=== PATIENT | female | born 1975 | race Caucasian/White ===

== ENCOUNTER → 2016-06-12 | Outpatient (CLI) | payer BC ==
[~2016-06-12] MED LIST: ALBU17AE3; ALBU17AE3 IH; FLUT1DIS28; PRD20T PO
== END ==
LOC: LAB 19:11
PROVIDERS: ATTEND Obstetrics & Gynecology
DX: O20.0 Threatened abortion (principal)
CPT/HCPCS: 36415; 84702

== ENCOUNTER 2017-01-15 13:12 | Day surgery (SDC) | payer BC ==
[~2017-01-15] VITALS: Ht 170.2 cm; Wt 78.5 kg
--- OUTSIDE RECORDS SUMMARY | 2017-01-15 13:15 | XMS REPORT | Continuity of Care Document ---
Author Author [facility] Address Unknown Phone Unavailable Allergies Active Description Code Type Severity Reaction Onset Reported/Identified Relationship to Patient Clinical Status Yes No Known Drug Allergies [id number] Drug Allergy Unknown N/ A 05/14/2007 Medications Problems Date Dx Coded Attending Type Code Diagnosis Diagnosed By 10/16/2007 REJI MILNER DO 300.00 AN ANXIETY UNSPEC 10/16/2007 REJI MILNER DO 307.47 SI DYSSOMNIA NOS 10/16/2007 REJI MILNER DO 311 MO DEPRESSIVE DISORDER NOS 10/16/2007 300.00 AN ANXIETY UNSPEC 10/16/2007 307.47 SI DYSSOMNIA NOS 10/16/2007 311 MO DEPRESSIVE DISORDER NOS 10/16/2007 300.00 AN ANXIETY UNSPEC 10/16/2007 307.47 SI DYSSOMNIA NOS 10/16/2007 311 MO DEPRESSIVE DISORDER NOS 10/16/2007 REJI MILNER DO 300.00 AN ANXIETY UNSPEC 10/16/2007 REJI MILNER DO 307.47 SI DYSSOMNIA NOS 10/16/2007 REJI MILNER DO 311 MO DEPRESSIVE DISORDER NOS 10/16/2007 300.00 AN ANXIETY UNSPEC 10/16/2007 307.47 SI DYSSOMNIA NOS 10/16/2007 311 MO DEPRESSIVE DISORDER NOS 10/16/2007 300.00 AN ANXIETY UNSPEC 10/16/2007 307.47 SI DYSSOMNIA NOS 10/16/2007 311 MO DEPRESSIVE DISORDER NOS 10/16/2007 300.00 AN ANXIETY UNSPEC 10/16/2007 307.47 SI DYSSOMNIA NOS 10/16/2007 311 MO DEPRESSIVE DISORDER NOS 10/16/2007 300.00 AN ANXIETY UNSPEC 10/16/2007 307.47 SI DYSSOMNIA NOS 10/16/2007 311 MO DEPRESSIVE DISORDER NOS 10/16/2007 REJI MILNER DO 300.00 AN ANXIETY UNSPEC 10/16/2007 REJI MILNER DO 307.47 SI DYSSOMNIA NOS 10/16/2007 ALF WARD REJI Banuelos 311 MO DEPRESSIVE DISORDER NOS 10/16/2007 VANESSA GANDARA PHD 300.00 AN ANXIETY UNSPEC 10/16/2007 VANESSA GANDARA PHD 307.47 SI DYSSOMNIA NOS 10/16/2007 VANESSA GANDARA PHD 311 MO DEPRESSIVE DISORDER NOS 10/16/2007 NELSON JOHNSON 300.00 AN ANXIETY UNSPEC 10/16/2007 NELSON JOHNSON 307.47 SI DYSSOMNIA NOS 10/16/2007 NELSON JOHNSON 311 MO DEPRESSIVE DISORDER NOS 10/16/2007 VANESSA GANDARA PHD 300.00 AN ANXIETY UNSPEC 10/16/2007 VANESSA GANDARA PHD 307.47 SI DYSSOMNIA NOS 10/16/2007 VANESSA GANDARA PHD 311 MO DEPRESSIVE DISORDER NOS 10/16/2007 VANESSA GANDARA PHD 300.00 AN ANXIETY UNSPEC 10/16/2007 VANESSA GANDARA PHD 307.47 SI DYSSOMNIA NOS 10/16/2007 VANESSA GANDARA PHD 311 MO DEPRESSIVE DISORDER NOS 10/16/2007 VANESSA GANDARA PHD 300.00 AN ANXIETY UNSPEC 10/16/2007 VANESSA GANDARA PHD 307.47 SI DYSSOMNIA NOS 10/16/2007 VANESSA GANDARA PHD 311 MO DEPRESSIVE DISORDER NOS 10/16/2007 NELSON JOHNSON 300.00 AN ANXIETY UNSPEC 10/16/2007 NELSON JOHNSON 307.47 SI DYSSOMNIA NOS 10/16/2007 NELSON JOHNSON 311 MO DEPRESSIVE DISORDER NOS 10/16/2007 VANESSA GANDARA PHD 300.00 AN ANXIETY UNSPEC 10/16/2007 VANESSA GANDARA PHD 307.47 SI DYSSOMNIA NOS 10/16/2007 VANESSA GANDARA PHD 311 MO DEPRESSIVE DISORDER NOS 10/16/2007 VANESSA GANDARA PHD 300.00 AN ANXIETY UNSPEC 10/16/2007 VANESSA GANDARA PHD 307.47 SI DYSSOMNIA NOS 10/16/2007 VANESSA GANDARA PHD 311 MO DEPRESSIVE DISORDER NOS 10/16/2007 NELSON JOHNSON 300.00 AN ANXIETY UNSPEC 10/16/2007 NELSON JOHNSON 307.47 SI DYSSOMNIA NOS 10/16/2007 NELSON JOHNSON 311 MO DEPRESSIVE DISORDER NOS 10/16/2007 VANESSA GANDARA PHD 300.00 AN ANXIETY UNSPEC 10/16/2007 VANESSA GANDARA PHD 307.47 SI DYSSOMNIA NOS 10/16/2007 NICHOL SHEPHERD, VANESSA Peraza 311 MO DEPRESSIVE DISORDER NOS 10/16/2007 NICHOL SHEPHERD, VANESSA Peraza 300.00 AN ANXIETY UNSPEC 10/16/2007 VANESSA GANDARA PHD 307.47 SI DYSSOMNIA NOS 10/16/2007 NICHOL SHEPHERD, VANESSA Peraza 311 MO DEPRESSIVE DISORDER NOS 10/16/2007 NICHOL SHEPHERD, VANESSA Peraza 300.00 AN ANXIETY UNSPEC 10/16/2007 NICHOL SHEPHERD, VANESSA Peraza 307.47 SI DYSSOMNIA NOS 10/16/2007 NICHOL SHEPHERD, VANESSA Peraza 311 MO DEPRESSIVE DISORDER NOS 01/02/2008 REJI MILNER DO V61.10 RL RELATION COUNS 01/02/2008 V61.10 RL RELATION COUNS 01/02/2008 V61.10 RL RELATION COUNS 01/02/2008 REJI MILNER DO V61.10 RL RELATION COUNS 01/02/2008 V61.10 RL RELATION COUNS 01/02/2008 V61.10 RL RELATION COUNS 01/02/2008 V61.10 RL RELATION COUNS 01/02/2008 V61.10 RL RELATION COUNS 01/02/2008 REJI MILNER DO V61.10 RL RELATION COUNS 01/02/2008 VANESSA GANDARA PHD V61.10 RL RELATION COUNS 01/02/2008 NELSON JOHNSON V61.10 RL RELATION COUNS 01/02/2008 VANESSA GANDARA PHD V61.10 RL RELATION COUNS 01/02/2008 VANESSA GANDARA PHD V61.10 RL RELATION COUNS 01/02/2008 VANESSA GANDARA PHD V61.10 RL RELATION COUNS 01/02/2008 NELSON JOHNSON V61.10 RL RELATION COUNS 01/02/2008 VANESSA GANDARA PHD V61.10 RL RELATION COUNS 01/02/2008 VANESSA GANDARA PHD V61.10 RL RELATION COUNS 01/02/2008 NELSON JOHNSON V61.10 RL RELATION COUNS 01/02/2008 VANESSA GANDARA PHD V61.10 RL RELATION COUNS 01/02/2008 VANESSA GANDARA PHD V61.10 RL RELATION COUNS 01/02/2008 VANESSA GANDARA PHD V61.10 RL RELATION COUNS 04/13/2008 REJI MILNER DO 296.30 MAJOR DEPRESSIVE AFFECTIVE DISORDER RECURRENT EPISODE UNSPECIFIED DEGREE 04/13/2008 296.30 MAJOR DEPRESSIVE AFFECTIVE DISORDER RECURRENT EPISODE UNSPECIFIED DEGREE 04/13/2008 296.30 MAJOR DEPRESSIVE AFFECTIVE DISORDER RECURRENT EPISODE UNSPECIFIED DEGREE 04/13/2008 REJI MILNER DO 296.30 MAJOR DEPRESSIVE AFFECTIVE DISORDER RECURRENT EPISODE UNSPECIFIED DEGREE 04/13/2008 296.30 MAJOR DEPRESSIVE AFFECTIVE DISORDER RECURRENT EPISODE UNSPECIFIED DEGREE 04/13/2008 296.30 MAJOR DEPRESSIVE AFFECTIVE DISORDER RECURRENT EPISODE UNSPECIFIED DEGREE 04/13/2008 296.30 MAJOR DEPRESSIVE AFFECTIVE DISORDER RECURRENT EPISODE UNSPECIFIED DEGREE 04/13/2008 296.30 MAJOR DEPRESSIVE AFFECTIVE DISORDER RECURRENT EPISODE UNSPECIFIED DEGREE 04/13/2008 REJI MILNER DO 296.30 MAJOR DEPRESSIVE AFFECTIVE DISORDER RECURRENT EPISODE UNSPECIFIED DEGREE 04/13/2008 VANESSA GANDARA PHD 296.30 MAJOR DEPRESSIVE AFFECTIVE DISORDER RECURRENT EPISODE UNSPECIFIED DEGREE 04/13/2008 NELSON JOHNSON M 296.30 MAJOR DEPRESSIVE AFFECTIVE DISORDER RECURRENT EPISODE UNSPECIFIED DEGREE 04/13/2008 VANESSA GANDARA PHD 296.30 MAJOR DEPRESSIVE AFFECTIVE DISORDER RECURRENT EPISODE UNSPECIFIED DEGREE 04/13/2008 VANESSA GANDARA PHD 296.30 MAJOR DEPRESSIVE AFFECTIVE DISORDER RECURRENT EPISODE UNSPECIFIED DEGREE 04/13/2008 VANESSA GANDARA PHD 296.30 MAJOR DEPRESSIVE AFFECTIVE DISORDER RECURRENT EPISODE UNSPECIFIED DEGREE 04/13/2008 NELSON JOHNSON M 296.30 MAJOR DEPRESSIVE AFFECTIVE DISORDER RECURRENT EPISODE UNSPECIFIED DEGREE 04/13/2008 VANESSA GANDARA PHD 296.30 MAJOR DEPRESSIVE AFFECTIVE DISORDER RECURRENT EPISODE UNSPECIFIED DEGREE 04/13/2008 VANESSA GANDARA PHD 296.30 MAJOR DEPRESSIVE AFFECTIVE DISORDER RECURRENT EPISODE UNSPECIFIED DEGREE 04/13/2008 NELSON JOHNSON M 296.30 MAJOR DEPRESSIVE AFFECTIVE DISORDER RECURRENT EPISODE UNSPECIFIED DEGREE 04/13/2008 VANESSA GANDARA PHD 296.30 MAJOR DEPRESSIVE AFFECTIVE DISORDER RECURRENT EPISODE UNSPECIFIED DEGREE 04/13/2008 VANESSA GANDARA PHD 296.30 MAJOR DEPRESSIVE AFFECTIVE DISORDER RECURRENT EPISODE UNSPECIFIED DEGREE 04/13/2008 VANESSA GANDARA PHD 296.30 MAJOR DEPRESSIVE AFFECTIVE DISORDER RECURRENT EPISODE UNSPECIFIED DEGREE 06/11/2008 REJI MILNER DO 995.20 UNSPECIFIED ADVERSE EFFECT OF UNSPECIFIED DRUG MEDICINAL AND BIOLOGICAL SUBSTANCE 06/11/2008 REJI MILNER DO E939.9 UNSPECIFIED PSYCHOTROPIC AGENT CAUSING ADVERSE EFFECTS IN THERAPEUTIC USE 06/11/2008 995.20 UNSPECIFIED ADVERSE EFFECT OF UNSPECIFIED DRUG MEDICINAL AND BIOLOGICAL SUBSTANCE 06/11/2008 E939.9 UNSPECIFIED PSYCHOTROPIC AGENT CAUSING ADVERSE EFFECTS IN THERAPEUTIC USE 06/11/2008 995.20 UNSPECIFIED ADVERSE EFFECT OF UNSPECIFIED DRUG MEDICINAL AND BIOLOGICAL SUBSTANCE 06/11/2008 E939.9 UNSPECIFIED PSYCHOTROPIC AGENT CAUSING ADVERSE EFFECTS IN THERAPEUTIC USE 06/11/2008 REJI MILNER DO 995.20 UNSPECIFIED ADVERSE EFFECT OF UNSPECIFIED DRUG MEDICINAL AND BIOLOGICAL SUBSTANCE 06/11/2008 REJI MILNER DO E939.9 UNSPECIFIED PSYCHOTROPIC AGENT CAUSING ADVERSE EFFECTS IN THERAPEUTIC USE 06/11/2008 995.20 UNSPECIFIED ADVERSE EFFECT OF UNSPECIFIED DRUG MEDICINAL AND BIOLOGICAL SUBSTANCE 06/11/2008 E939.9 UNSPECIFIED PSYCHOTROPIC AGENT CAUSING ADVERSE EFFECTS IN THERAPEUTIC USE 06/11/2008 995.20 UNSPECIFIED ADVERSE EFFECT OF UNSPECIFIED DRUG MEDICINAL AND BIOLOGICAL SUBSTANCE 06/11/2008 E939.9 UNSPECIFIED PSYCHOTROPIC AGENT CAUSING ADVERSE EFFECTS IN THERAPEUTIC USE 06/11/2008 995.20 UNSPECIFIED ADVERSE EFFECT OF UNSPECIFIED DRUG MEDICINAL AND BIOLOGICAL SUBSTANCE 06/11/2008 E939.9 UNSPECIFIED PSYCHOTROPIC AGENT CAUSING ADVERSE EFFECTS IN THERAPEUTIC USE 06/11/2008 995.20 UNSPECIFIED ADVERSE EFFECT OF UNSPECIFIED DRUG MEDICINAL AND BIOLOGICAL SUBSTANCE 06/11/2008 E939.9 UNSPECIFIED PSYCHOTROPIC AGENT CAUSING ADVERSE EFFECTS IN THERAPEUTIC USE 06/11/2008 REJI MILNER DO 995.20 UNSPECIFIED ADVERSE EFFECT OF UNSPECIFIED DRUG MEDICINAL AND BIOLOGICAL SUBSTANCE 06/11/2008 REJI MILNER DO E939.9 UNSPECIFIED PSYCHOTROPIC AGENT CAUSING ADVERSE EFFECTS IN THERAPEUTIC USE 06/11/2008 VANESSA GANDARA PHD 995.20 UNSPECIFIED ADVERSE EFFECT OF UNSPECIFIED DRUG MEDICINAL AND BIOLOGICAL SUBSTANCE 06/11/2008 VANESSA GANDARA PHD E939.9 UNSPECIFIED PSYCHOTROPIC AGENT CAUSING ADVERSE EFFECTS IN THERAPEUTIC USE 06/11/2008 NELSON JOHNSON 995.20 UNSPECIFIED ADVERSE EFFECT OF UNSPECIFIED DRUG MEDICINAL AND BIOLOGICAL SUBSTANCE 06/11/2008 NELSON JOHNSON E939.9 UNSPECIFIED PSYCHOTROPIC AGENT CAUSING ADVERSE EFFECTS IN THERAPEUTIC USE 06/11/2008 VANESSA GANDARA PHD 995.20 UNSPECIFIED ADVERSE EFFECT OF UNSPECIFIED DRUG MEDICINAL AND BIOLOGICAL SUBSTANCE 06/11/2008 VANESSA GANDARA PHD E939.9 UNSPECIFIED PSYCHOTROPIC AGENT CAUSING ADVERSE EFFECTS IN THERAPEUTIC USE 06/11/2008 VANESSA GANDARA PHD 995.20 UNSPECIFIED ADVERSE EFFECT OF UNSPECIFIED DRUG MEDICINAL AND BIOLOGICAL SUBSTANCE 06/11/2008 VANESSA GANDARA PHD E939.9 UNSPECIFIED PSYCHOTROPIC AGENT CAUSING ADVERSE EFFECTS IN THERAPEUTIC USE 06/11/2008 VANESSA GANDARA PHD 995.20 UNSPECIFIED ADVERSE EFFECT OF UNSPECIFIED DRUG MEDICINAL AND BIOLOGICAL SUBSTANCE 06/11/2008 VANESSA GANDARA PHD E939.9 UNSPECIFIED PSYCHOTROPIC AGENT CAUSING ADVERSE EFFECTS IN THERAPEUTIC USE 06/11/2008 NELSON JOHNSON 995.20 UNSPECIFIED ADVERSE EFFECT OF UNSPECIFIED DRUG MEDICINAL AND BIOLOGICAL SUBSTANCE 06/11/2008 NELSON JOHNSON E939.9 UNSPECIFIED PSYCHOTROPIC AGENT CAUSING ADVERSE EFFECTS IN THERAPEUTIC USE 06/11/2008 VANESSA GANDARA PHD 995.20 UNSPECIFIED ADVERSE EFFECT OF UNSPECIFIED DRUG MEDICINAL AND BIOLOGICAL SUBSTANCE 06/11/2008 VANESSA GANDARA PHD E939.9 UNSPECIFIED PSYCHOTROPIC AGENT CAUSING ADVERSE EFFECTS IN THERAPEUTIC USE 06/11/2008 VANESSA GANDARA PHD 995.20 UNSPECIFIED ADVERSE EFFECT OF UNSPECIFIED DRUG MEDICINAL AND BIOLOGICAL SUBSTANCE 06/11/2008 VANESSA GANDARA PHD E939.9 UNSPECIFIED PSYCHOTROPIC AGENT CAUSING ADVERSE EFFECTS IN THERAPEUTIC USE 06/11/2008 NELSON JOHNSON M 995.20 UNSPECIFIED ADVERSE EFFECT OF UNSPECIFIED DRUG MEDICINAL AND BIOLOGICAL SUBSTANCE 06/11/2008 NELOSN JOHNSON M E939.9 UNSPECIFIED PSYCHOTROPIC AGENT CAUSING ADVERSE EFFECTS IN THERAPEUTIC USE 06/11/2008 VANESSA GANDARA PHD 995.20 UNSPECIFIED ADVERSE EFFECT OF UNSPECIFIED DRUG MEDICINAL AND BIOLOGICAL SUBSTANCE 06/11/2008 VANESSA GANDARA PHD E939.9 UNSPECIFIED PSYCHOTROPIC AGENT CAUSING ADVERSE EFFECTS IN THERAPEUTIC USE 06/11/2008 VANESSA GANDARA PHD 995.20 UNSPECIFIED ADVERSE EFFECT OF UNSPECIFIED DRUG MEDICINAL AND BIOLOGICAL SUBSTANCE 06/11/2008 VANESSA GANDARA PHD E939.9 UNSPECIFIED PSYCHOTROPIC AGENT CAUSING ADVERSE EFFECTS IN THERAPEUTIC USE 06/11/2008 VANESSA GANDARA PHD 995.20 UNSPECIFIED ADVERSE EFFECT OF UNSPECIFIED DRUG MEDICINAL AND BIOLOGICAL SUBSTANCE 06/11/2008 VANESSA GANDARA PHD E939.9 UNSPECIFIED PSYCHOTROPIC AGENT CAUSING ADVERSE EFFECTS IN THERAPEUTIC USE 11/11/2008 REJI MILNER DO 300.21 AN PANIC DIS W AGORA 11/11/2008 300.21 AN PANIC DIS W AGORA 11/11/2008 300.21 AN PANIC DIS W AGORA 11/11/2008 REJI MILNER DO 300.21 AN PANIC DIS W AGORA 11/11/2008 300.21 AN PANIC DIS W AGORA 11/11/2008 300.21 AN PANIC DIS W AGORA 11/11/2008 300.21 AN PANIC DIS W AGORA 11/11/2008 300.21 AN PANIC DIS W AGORA 11/11/2008 REJI MILNER DO 300.21 AN PANIC DIS W AGORA 11/11/2008 NICHOL SHEPHERD, VANESSA Peraza 300.21 AN PANIC DIS W AGORA 11/11/2008 NELSON JOHNSON 300.21 AN PANIC DIS W AGORA 11/11/2008 VANESSA GANDARA PHD 300.21 AN PANIC DIS W AGORA 11/11/2008 VANESSA GANDARA PHD 300.21 AN PANIC DIS W AGORA 11/11/2008 VANESSA GANDARA PHD 300.21 AN PANIC DIS W AGORA 11/11/2008 NELSON JOHNSON 300.21 AN PANIC DIS W AGORA 11/11/2008 VANESSA GANDARA PHD 300.21 AN PANIC DIS W AGORA 11/11/2008 VANESSA GANDARA PHD 300.21 AN PANIC DIS W AGORA 11/11/2008 NELSON JOHNSON 300.21 AN PANIC DIS W AGORA 11/11/2008 VANESSA GANDARA PHD 300.21 AN PANIC DIS W AGORA 11/11/2008 VANESSA GANDARA PHD 300.21 AN PANIC DIS W AGORA 11/11/2008 VANESSA GANDARA PHD 300.21 AN PANIC DIS W AGORA 08/03/2010 Ot 276.51 DEHYDRATION 08/03/2010 Ot 791.6 ACETONURIA 11/07/2010 REJI MILNER DO 296.80 MO BIPOLAR NOS 11/07/2010 REJI MILNER DO 309.81 AN PTSD 11/07/2010 296.80 MO BIPOLAR NOS 11/07/2010 309.81 AN PTSD 11/07/2010 296.80 MO BIPOLAR NOS 11/07/2010 309.81 AN PTSD 11/07/2010 WERDER DO, REJI F 296.80 MO BIPOLAR NOS 11/07/2010 ALF DO REIJ F 309.81 AN PTSD 11/07/2010 296.80 MO BIPOLAR NOS 11/07/2010 309.81 AN PTSD 11/07/2010 296.80 MO BIPOLAR NOS 11/07/2010 309.81 AN PTSD 11/07/2010 296.80 MO BIPOLAR NOS 11/07/2010 309.81 AN PTSD 11/07/2010 296.80 MO BIPOLAR NOS 11/07/2010 309.81 AN PTSD 11/07/2010 REJI MILNER DO F 296.80 MO BIPOLAR NOS 11/07/2010 ALF DOREJI F 309.81 AN PTSD 11/07/2010 VANESSA GANDARA PHD 296.80 MO BIPOLAR NOS 11/07/2010 VANESSA GANDARA PHD 309.81 AN PTSD 11/07/2010 NELSON JOHNSON M 296.80 MO BIPOLAR NOS 11/07/2010 NELSON JOHNSON M 309.81 AN PTSD 11/07/2010 VANESSA GANDARA PHD 296.80 MO BIPOLAR NOS 11/07/2010 VANESSA GANDARA PHD 309.81 AN PTSD 11/07/2010 VANESSA GANDARA PHD 296.80 MO BIPOLAR NOS 11/07/2010 VANESSA GANDARA PHD 309.81 AN PTSD 11/07/2010 VANESSA GANDARA PHD 296.80 MO BIPOLAR NOS 11/07/2010 VANESSA GANDARA PHD 309.81 AN PTSD 11/07/2010 NELSON JOHNSON M 296.80 MO BIPOLAR NOS 11/07/2010 NELSON JOHNSON M 309.81 AN PTSD 11/07/2010 VANESSA GANDARA PHD 296.80 MO BIPOLAR NOS 11/07/2010 VANESSA GANDARA PHD 309.81 AN PTSD 11/07/2010 VANESSA GANDARA PHD 296.80 MO BIPOLAR NOS 11/07/2010 VANESSA GANDARA PHD 309.81 AN PTSD 11/07/2010 NELSON JOHNSON M 296.80 MO BIPOLAR NOS 11/07/2010 NELSON JOHNSON M 309.81 AN PTSD 11/07/2010 VANESSA GANDARA PHD 296.80 MO BIPOLAR NOS 11/07/2010 VANESSA GANDARA PHD 309.81 AN PTSD 11/07/2010 VANESSA GANDARA PHD 296.80 MO BIPOLAR NOS 11/07/2010 VANESSA GANDARA PHD 309.81 AN PTSD 11/07/2010 VANESSA GANDARA PHD 296.80 MO BIPOLAR NOS 11/07/2010 VANESSA GANDARA PHD 309.81 AN PTSD 03/06/2012 296.32 MO DEPRESSIVE RECURRENT MODERATE 03/06/2012 REJI MILNER DO F 296.32 MO DEPRESSIVE RECURRENT MODERATE 03/06/2012 296.32 MO DEPRESSIVE RECURRENT MODERATE 03/06/2012 296.32 MO DEPRESSIVE RECURRENT MODERATE 03/06/2012 296.32 MO DEPRESSIVE RECURRENT MODERATE 03/06/2012 296.32 MO DEPRESSIVE RECURRENT MODERATE 03/06/2012 REJI MILNER DO F 296.32 MO DEPRESSIVE RECURRENT MODERATE 03/06/2012 VANESSA GANDARA PHD 296.32 MO DEPRESSIVE RECURRENT MODERATE 03/06/2012 NELSON JOHNSON 296.32 MO DEPRESSIVE RECURRENT MODERATE 03/06/2012 VANESSA GANDARA PHD 296.32 MO DEPRESSIVE RECURRENT MODERATE 03/06/2012 VANESSA GANDARA PHD 296.32 MO DEPRESSIVE RECURRENT MODERATE 03/06/2012 VANESSA GANDARA PHD 296.32 MO DEPRESSIVE RECURRENT MODERATE 03/06/2012 NELSON JOHNSON M 296.32 MO DEPRESSIVE RECURRENT MODERATE 03/06/2012 VANESSA GANDARA PHD 296.32 MO DEPRESSIVE RECURRENT MODERATE 03/06/2012 VANESSA GANDARA PHD 296.32 MO DEPRESSIVE RECURRENT MODERATE 03/06/2012 NELSON JOHNSON M 296.32 MO DEPRESSIVE RECURRENT MODERATE 03/06/2012 VANESSA GANDARA PHD 296.32 MO DEPRESSIVE RECURRENT MODERATE 03/06/2012 VANESSA GANDARA PHD 296.32 MO DEPRESSIVE RECURRENT MODERATE 03/06/2012 VANESSA GANDARA PHD 296.32 MO DEPRESSIVE RECURRENT MODERATE 12/25/2013 NELSON JOHNSON M 296.33 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 12/25/2013 VANESSA GANDARA PHD 296.33 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 12/25/2013 VANESSA GANDARA PHD 296.33 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 12/25/2013 VANESSA GANDARA PHD 296.33 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 12/25/2013 NELSON JOHNSON M 296.33 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 12/25/2013 VANESSA GANDARA PHD 296.33 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 12/25/2013 NICHOL SHEPHERD, VANESSA Peraza 296.33 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 12/25/2013 NELSON JOHNSON 296.33 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 12/25/2013 NICHOL SHEPHERD, VANESSA Peraza 296.33 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 12/25/2013 NICHOL SHEPHERD, VANESSA Peraza 296.33 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 12/25/2013 NICHOL SHEPHERD, VANESSA Peraza 296.33 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 06/23/2015 Ot 959.3 ELB/FOREARM/WRST INJ NOS 06/23/2015 Ot E000.8 OTHER EXTERNAL CAUSE STATUS 06/23/2015 Ot E030 UNSPECIFIED ACTIVITY 06/23/2015 Ot E849.0 ACCIDENT IN HOME 07/06/2015 MYESHA ULRICH MD Ot M47.896 OTHER SPONDYLOSIS, LUMBAR REGION 10/07/2015 Ot 959.3 ELB/FOREARM/WRST INJ NOS 10/07/2015 Ot E000.8 OTHER EXTERNAL CAUSE STATUS 10/07/2015 Ot E030 UNSPECIFIED ACTIVITY 10/07/2015 Ot E849.0 ACCIDENT IN HOME 10/07/2015 MYESHA ULRICH MD Ot M47.896 OTHER SPONDYLOSIS, LUMBAR REGION 10/11/2015 QUICKLEONARD [employer]ISH[employer] Ot N93.8 OTHER SPECIFIED ABNORMAL UTERINE AND VAG 10/11/2015 LEONARD WILSON [employer]ISHING [employer] Ot N94.6 DYSMENORRHEA, UNSPECIFIED 10/27/2015 LEONARD WILSON FINISHING [employer] Ot N93.8 OTHER SPECIFIED ABNORMAL UTERINE AND VAG 10/27/2015 QUICKLEONARD [employer]ISHING [employer] Ot N94.6 DYSMENORRHEA, UNSPECIFIED 06/12/2016 Ot 959.3 ELB/FOREARM/WRST INJ NOS 06/12/2016 Ot E000.8 OTHER EXTERNAL CAUSE STATUS 06/12/2016 Ot E030 UNSPECIFIED ACTIVITY 06/12/2016 Ot E849.0 ACCIDENT IN HOME 06/12/2016 MYESHA ULRICH MD Ot M47.896 OTHER SPONDYLOSIS, LUMBAR REGION 06/12/2016 LEONARD WILSON FINISHING [employer] Ot N93.8 OTHER SPECIFIED ABNORMAL UTERINE AND VAG 06/12/2016 QUICKLEONARD [employer] Ot N94.6 DYSMENORRHEA, UNSPECIFIED 07/04/2016 NED UGARTE DOA Shauna Ot O20.0 THREATENED Procedures Code [place] [address] PSYCH DIAGNOSTIC EVALUATION 03/07/2012 37631 PSYTX PT&/FAMILY 30 MINUTES 06/19/2012 35664 PSYTX PT&/FAMILY 45 MINUTES 07/11/2012 34004 PSYTX PT&/FAM W/E&M 30 MIN 08/15/2012 85759 PSYTX PT&/FAMILY 30 MINUTES 11/12/2012 24194 PSYCH DIAGNOSTIC EVALUATION 11/06/2013 88414 PSYTX PT&/FAMILY 45 MINUTES 12/28/2013 73615 PSYCH DIAGNOSTIC EVALUATION 12/28/2013 43970 PSYCH DIAGNOSTIC EVALUATION 12/30/2013 72009 PSYTX PT&/FAMILY 45 MINUTES 12/30/2013 46117 PSYTX PT&/FAMILY 45 MINUTES 01/07/2014 68151 PSYTX PT&/FAMILY 45 MINUTES 02/24/2014 06164 PSYCH DIAGNOSTIC EVALUATION 02/26/2014 98841 PSYCH DIAGNOSTIC EVALUATION 03/01/2014 37841 PSYTX PT&/FAMILY 45 MINUTES 03/03/2014 86781 PSYTX PT&/FAMILY 45 MINUTES 03/10/2014 72200 PSYCH DIAG EVAL W/MED SRVCS 04/11/2014 72095 PSYTX PT&/FAMILY 45 MINUTES 04/12/2014 11583 PSYTX PT&/FAMILY 45 MINUTES 05/17/2014 67951 PSYTX PT&/FAMILY 45 MINUTES 06/15/2014 Results Test Result Range Serum or plasma choriogonadotropin measurement (units/volume) - 06/12/16 19:25 Serum or plasma choriogonadotropin measurement (units/volume) 8 m[iU]/mL <5 Encounters ACCT No. Visit Date/Time Discharge Status Pt. Type Provider Facility Loc./Unit Complaint [id number] 06/15/2014 08:50:00 06/15/2014 23: 59:59 [facility] Outpatient VANESSA GANDARA PHD [id number] 05/17/2014 09:02:00 05/17/2014 23: 59:59 [facility] Outpatient VANESSA GANDARA PHD [id number] 04/09/2014 08:56:00 04/09/2014 23: 59:59 [facility] Outpatient VANESSA GANDARA PHD [id number] 03/10/2014 09:54:00 03/10/2014 23: 59:59 C[facility] Outpatient VANESSA GANDARA PHD [id number] 03/03/2014 14:00:00 03/03/2014 23: 59:59 CLS Outpatient VANESSA GANDARA PHD [id number] 02/26/2014 10:07:00 02/26/2014 23: 59:59 CLS Outpatient NELSON JOHNSON [id number] 02/24/2014 09:57:00 02/24/2014 23: 59:59 NICO[facility] Outpatient VANESSA GANDARA PHD [id number] 01/07/2014 11:01:00 01/07/2014 23: 59:59 NICOLE Outpatient VANESSA GANDARA PHD [id number] 12/30/2013 08:59:00 12/30/2013 23: 59:59 CLS Outpatient VANESSA GANDARA PHD [id number] 12/28/2013 11:03:00 12/28/2013 23: 59:59 CLS Outpatient NELSON JOHNSON [id number] 12/28/2013 11:03:00 12/28/2013 23: 59:59 CLS Outpatient NELSON JOHNSON [id number] 11/06/2013 15:51:00 11/06/2013 23: 59:59 NICOLE Outpatient VANESSA GANDARA PHD [id number] 11/13/2012 16:34:00 11/13/2012 23: 59:59 CLS Outpatient REJI MILNER DO [id number] 03/14/2012 13:58:00 03/14/2012 23: 59:59 CLS Outpatient REJI MILNER DO [id number] 03/06/2012 10:03:00 03/06/2012 23: 59:59 CLS Outpatient [id number] 12/13/2011 10:56:00 12/13/2011 23: 59:59 CLS Outpatient [id number] 12/13/2011 10:56:00 12/13/2011 23: 59:59 CLS Outpatient REJI MILNER DO [id number] 11/07/2012 16:10:00 Document Registration [id number] 09/30/2012 17:07:00 Document Registration [id number] 07/09/2012 09:11:00 Document Registration [id number] 06/19/2012 14:36:00 Document Registration [id number] 06/12/2016 19:11:00 2016 23:59:59 CLS Outpatient XU UGARTE DO [facility] LAB MISCARRIAGE,THREATENED, EARLY [id number] 10/07/2015 09:41:00 2015 23:59:59 CLS Outpatient LEONARD WILSON [facility] RAD DYSMENORRHEA,DUB [id number] 06/23/2015 14:36:00 2015 23:59:59 CLS Outpatient MOJGAN MALDONADO, MYESHA Peraza [facility] RAD REFRACTURY TO PT LOWER LUMBAR PAIN, PRE MRI [id number] 08/04/2013 09:42:00 2013 23:59:59 CLS Outpatient [id number] 09/05/2011 14:58:00 Document Registration [id number] 08/02/2010 17:05:00 Document Registration
[2017-01-15 13:20] VITALS: BP 123/79
[2017-01-15] MEDS ORDERED: ceFAZolin 1 GM/NS 50 ML IVPB IV ONE ×2 (14:15)
[2017-01-15] MEDS ORDERED: metroNIDAZOLE 500MG/100ML IVPB 100 ML IV ONE (14:15)
[2017-01-15] MEDS: LACTATED RINGERS 1,000 ML IV PRN ×2 (14:15→16:25)
[2017-01-15] MEDS ORDERED: MIDAZOLAM 2 MG/2 ML (VERSED) VIAL ONE (14:40)
[2017-01-15] MEDS ORDERED: ONDANSETRON 4 MG/2 ML (SDV) Z0FRAN ONE (14:40)
[2017-01-15] MEDS ORDERED: fentaNYL INJECTION 100 MCG/2 ML AMP ONE (14:40)
[2017-01-15] MEDS ORDERED: LIDOCAINE PF 2% 5 ML (XYLOCAINE) VIAL ONE (14:40)
[2017-01-15] MEDS ORDERED: proPOfol 200 MG/20 ML (DIPRIVAN) VIAL IV ONE (14:40)
[2017-01-15] MEDS ORDERED: SEVOFLURANE (ULTANE) 15 ML INHAL SOLN ONE (14:42)
--- NOTE | 2017-01-15 15:20 | Progress Note-Pre Operative ---
Pre-Operative Progress Note H&P Reviewed The H&P was reviewed, patient examined and no changes noted. Date Seen by Provider: Jan 15, 2017 Time Seen by Provider: 15:15 Date H&P Reviewed: Jan 15, 2017 Time H&P Reviewed: 15:15 Pre-Operative Diagnosis: Missed XU Wilkinson DO Jan 15, 2017 15:20
[2017-01-15] MEDS ORDERED: D5 LR IV SOLUTION 1,000 ML IV SCH (16:28)
[2017-01-15] MEDS ORDERED: ONDANSETRON 4 MG/2 ML (SDV) Z0FRAN IVP PRN ×2 (16:30→16:45)
[2017-01-15] MEDS ORDERED: KETOROLAC 30 MG/ML VIAL IVP ONE ×2 (16:30)
--- NOTE | 2017-01-15 16:30 | Operative Report ---
Operative Report Date of Procedure/Surgery Jan 15, 2017 Surgeon (s) XU UGARTE DO Patch Worker (s): na Post-Operative Diagnosis same Procedure Performed suction dilation and curettage Description of Procedure Anesthesia Type: General Estimated blood loss (mL): 50 Specimen(s) collected/removed POC Description of the Procedure With informed consent the patient was taken to the operating room where general anesthesia was found to be adequate. She was prepped and draped in the usual sterile fashion in the dorsolithotomy position. The bladder was drained of clear, yellow urine. A speculum was placed in the vagina and the cervix was grasped with a tenaculum. The cervix was closed. The cervix was gently dilated with Carrillo dilators. A suction curette was done removing a moderate amount of products of conception. This was followed with a sharp curette until a gritty texture was heard. I then followed with suction to ensure that all blood clots were removed. The tenaculum was removed from the cervix and a ring forceps was used to control any bleeding on the cervix. The instruments were removed from the vagina. The patient was awakened and taken to the recovery room in stable condition. Findings of the Procedure moderate amount products of conception cervix closed with brownish discharge Allergies and Home Medications Allergies Coded Allergies: No Known Drug Allergies (Verified , 11/23/13) Home Medications Albuterol 17 Gm Aerosol, (Reported) Albuterol 17 Gm Inh, 2-4 SPRAY IH QID, #1 Ref 0 PRN COUGH OR WHEEZE Prescribed by: GIL CONKLIN on 06/10/084 Fluticasone/Salmeterol 1 Disk Inhp, (Reported) Ibuprofen 600 Mg Tablet, 600 MG PO Q6HR, #60 Prescribed by: XU UGARTE on 01/15/17 1632 Prednisone 20 Mg Tab, 3 TAB PO DAILY, #11 Ref 0 3 ON DAY ONE, TAPER BY 1/2 TAB DAILY TIL GONE Prescribed by: GIL CONKLIN on 06/10/084 XU UGARTE DO Jan 15, 2017 16:30
[2017-01-15] MEDS ORDERED: IBUP-1773 PO (16:32)
--- NOTE | 2017-01-15 16:33 | Discharge Inst-Women's Service ---
Discharge Inst-Women's Serv Depart Medication/Instructions New, Converted or Re-Newed RX: RX on Chart Final Diagnosis Missed ab Consults/Follow Up Additional Follow Up: Yes (appointment 01/24/17 3:30 pm. call to reschedule if this does not work) Activity Activity: Activity as Tolerated Driving Instructions: No Driving for 24 Hours NO SMOKING: NO SMOKING Nothing Inside Vagina: No Douching, No Switzer, No Tampons Diet Discharge Diet: No Restrictions Symptoms to Report to : Bleeding Excessive, Pain Increased, Fever Over 101 Degrees F, Vaginal Bleeding Increase, Vaginal Discharge Foul For Any Problems or Questions: Contact Your Physician XU UGARTE DO Jan 15, 2017 16:33
[2017-01-15] MEDS ORDERED: morphine INJ 10 MG/ML 1ML (SYR OR VIAL) IVP PRN (16:45)
[2017-01-15] MEDS ORDERED: MEPERIDINE (DEMEROL) INJ 50 MG/ML IVP PRN (16:45)
[2017-01-15 17:15] VITALS: BP 130/81
[2017-01-15 17:45] VITALS: BP 137/82
[2017-01-15] MEDS ORDERED: IBUPROFEN 600 MG (MOTRIN) TAB PO SCH (18:00)
[2017-01-15 18:20] VITALS: BP 137/82
== END 2017-01-15 18:05 | disposition home or self-care (01) ==
LOC: SDC 13:12
PROVIDERS: ATTEND Obstetrics & Gynecology
DX: O02.1 Missed abortion (principal); J45.909 Unspecified asthma, uncomplicated; K21.9 Gastro-esophageal reflux disease without esophagitis; Z87.891 Personal history of nicotine dependence; Z79.899 Other long term (current) drug therapy
CPT/HCPCS: 87081

== ENCOUNTER → 2017-07-03 | Outpatient (CLI) | payer BC ==
[~2017-07-03] MED LIST changes: +IBUP-1773 PO
--- NOTE | 2017-07-03 19:30 | Diagnostic Imaging Report ---
Digital mammogram bilateral diagnostic with 3D tomosynthesis. The current study was also evaluated with a Computer Aided Detection (CAD) system. INDICATION: Left breast lump. FINDINGS: This is the patient's baseline study. At this time, she does note a palpable abnormality in the retroareolar region of the left breast. A marker is placed in the area of concern. There is no primary or secondary sign of malignancy evident in this area; however, the fibroglandular tissue in the left breast is heterogeneously dense and could mask an underlying lesion. I would recommend that ultrasound be performed for further study. The fibroglandular tissue in the right breast is also heterogeneously dense. There is no primary or secondary sign of malignancy noted, however. The 3D tomographic views also fail to show any evidence of malignancy. IMPRESSION: There is no evidence for malignancy. In particular, there is no abnormality to correspond to the patient's palpable abnormality in the left breast. Ultrasound will be recommended for further study. ACR BI-RADS Category 0: Incomplete. (Needs additional imaging evaluation). Result letter will be mailed to the patient. Note: At least 10% of breast cancer is not imaged by mammography. Dictated by: Dictated on workstation # [id number]
--- NOTE | 2017-07-03 20:05 | Diagnostic Imaging Report ---
EXAMINATION: Left breast ultrasound limited. INDICATION: Left breast lump. FINDINGS: The diagnostic mammogram performed earlier today failed to show any sign of malignancy or of any abnormality to correspond to the patient's reported palpable mass in the 6 o'clock position of the left breast. On this exam, however, there is a 1.0 x 1.0 x 1.6 cm fairly well-circumscribed area of slightly mixed echogenicity in the 6 o'clock position of the breast 1 cm from the nipple. The tissue in this area is primarily echogenic. This could represent a small resolving hematoma or perhaps an abscess. The patient does report that this finding has decreased in size than she initially noticed it three weeks ago. There is no increased vascularity associated with this finding and I do suspect it is most likely a benign process. Even so, I would recommend a short-term (six-week) follow-up ultrasound exam of the left breast be obtained for continued evaluation. No other abnormality is identified. IMPRESSION: There is a small 1.0 x 1.0 x 1.6 cm area of mixed echogenicity in the region of the patient's palpable abnormality. The precise etiology of this finding is not certain, but this is most likely a benign process such as a resolving hematoma or abscess. Recommendations as above. ACR BI-RADS Category 3: Probably benign findings. Dictated by: Dictated on workstation # [id number]
== END ==
LOC: RAD 13:06
PROVIDERS: ATTEND Nurse Practitioner
DX: N63.20 Unspecified lump in the left breast, unspecified quadrant (principal)
CPT/HCPCS: 76642; 77066

== ENCOUNTER → 2018-01-15 | Outpatient (CLI) | payer BC | LOC: LABNPT 18:07 | PROVIDERS: ATTEND Obstetrics & Gynecology | DX: N97.0 Female infertility associated with anovulation (principal) | CPT/HCPCS: 84144 ==

== ENCOUNTER → 2018-03-09 | Outpatient (CLI) | payer BC | LOC: LAB 12:39 | PROVIDERS: ATTEND Obstetrics & Gynecology | DX: N92.6 Irregular menstruation, unspecified (principal); N96 Recurrent pregnancy loss | CPT/HCPCS: 36415; 84144 ==

== ENCOUNTER → 2018-04-26 | Outpatient (CLI) | payer BC | LOC: LAB 15:08 | PROVIDERS: ATTEND Obstetrics & Gynecology | DX: N96 Recurrent pregnancy loss (principal) | CPT/HCPCS: 36415; 82670 ==

== ENCOUNTER → 2018-05-23 | Outpatient (CLI) | payer BC | LOC: LAB 03:47 | PROVIDERS: ATTEND Obstetrics & Gynecology | DX: N96 Recurrent pregnancy loss (principal) | CPT/HCPCS: 36415; 82670 ==

== ENCOUNTER 2018-06-10 04:00 | Emergency (ER) | payer BC, OTHER ==
[~2018-06-10] VITALS: Ht 170.2 cm; Wt 78.5 kg
--- OUTSIDE RECORDS SUMMARY | 2018-06-10 04:07 | XMS REPORT | Continuity of care Document ---
Author Author GENERATED, SYSTEM Organization Unknown Address Unknown Phone Unavailable Purpose Hospital Course Allergies, Adverse Reactions, Alerts * Penicillins causes Moderate Rash. * No Latex Allergy. * No IV Contrast Allergy. Problems No relevant problems exist. Procedures No relevant procedures performed. Medication Medication reconciliation has not been performed. Results DX Radiology from 06/22/2013 1:22 PMHAND LEFT 3 VIEWS DATE OF EXAM: Jun 22 2013 1:36PM Proc: DG 4024 - HAND LEFT 3 VIEWS CPT Code(s): 63774-CK; ; ; INDICATION / CLINICAL HISTORY: S/P ORIF fourth metacarpal Three views of the left hand were obtained. FINDINGS: There are postsurgical changes of internal fixation of the fourth metacarpal bone with three screws transfixing the metacarpal diaphysis. Alignment is anatomic. There is overlying splint material in place. IMPRESSION: Postsurgical changes of open reduction and internal fixation of a fourth metacarpal fracture with anatomical alignment noted.
--- OUTSIDE RECORDS SUMMARY | 2018-06-10 04:09 | XMS REPORT | Continuity of Care Document ---
Author Organization Unknown Address Unknown Allergies Active Description Code Type Severity Reaction Onset Reported/Identified Relationship to Patient Clinical Status Yes No Known Drug Allergies [id number] Drug Allergy Unknown N/A 05/14/2007 Medications There is no data. Problems Date Dx Coded Attending Type Code [...] DO 311 MO DEPRESSIVE DISORDER NOS 10/16/2007 VANESSA [...] GANDARA PHD 300.00 AN ANXIETY UNSPEC 10/16/2007 NICHOL SHEPHERD, [...] RECURRENT EPISODE UNSPECIFIED DEGREE 04/13/2008 NELSON JOHNSON 296.30 MAJOR DEPRESSIVE AFFECTIVE DISORDER RECURRENT EPISODE [...] MEDICINAL AND BIOLOGICAL SUBSTANCE 06/11/2008 NELSON JOHNSON M E939.9 UNSPECIFIED PSYCHOTROPIC AGENT CAUSING [...] 309.81 AN PTSD 11/07/2010 REJI MILNER DO 296.80 MO BIPOLAR NOS 11/07/2010 REJI MILNER DO F 309.81 AN PTSD 11/07/2010 296.80 MO BIPOLAR NOS 11/07/2010 309.81 AN PTSD 11/07/2010 296.80 MO BIPOLAR NOS 11/07/2010 309.81 AN PTSD 11/07/2010 296.80 MO BIPOLAR NOS 11/07/2010 309.81 AN PTSD 11/07/2010 296.80 MO BIPOLAR NOS 11/07/2010 309.81 AN PTSD 11/07/2010 REJI MILNER DO F 296.80 MO BIPOLAR NOS 11/07/2010 REJI MILNER DO F 309.81 AN PTSD 11/07/2010 VANESSA GANDARA [...] 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 12/25/2013 INCHOL SHEPHERD, VAENSSA Peraza 296.33 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 06/23/2015 Ot 959.3 ELB/FOREARM/ WRST INJ NOS 06/23/2015 Ot E000.8 OTHER EXTERNAL CAUSE STATUS 06/23/2015 Ot E030 UNSPECIFIED ACTIVITY 06/23/2015 Ot E849.0 ACCIDENT IN HOME 07/06/2015 MYESHA ULRICH MD Ot M47.896 OTHER SPONDYLOSIS, LUMBAR REGION 10/07/2015 Ot 959.3 ELB/FOREARM/ WRST INJ NOS 10/07/2015 Ot E000.8 OTHER EXTERNAL CAUSE STATUS 10/07/2015 Ot E030 UNSPECIFIED ACTIVITY 10/07/2015 Ot E849.0 ACCIDENT IN HOME 10/07/2015 MYESHA ULRICH MD Ot M47.896 OTHER SPONDYLOSIS, LUMBAR REGION 10/11/2015 QUICKLEONARD ANIME DESIGNER Ot N93.8 OTHER SPECIFIED ABNORMAL UTERINE AND VAG 10/11/2015 LEONARD WILSON ANIME DESIGNER Ot N94.6 DYSMENORRHEA, UNSPECIFIED 10/27/2015 LEONARD WILSON ANIME DESIGNER Ot N93.8 OTHER SPECIFIED ABNORMAL UTERINE AND VAG 10/27/2015 QUICKLEONARD ANIME DESIGNER Ot N94.6 DYSMENORRHEA, UNSPECIFIED 06/12/2016 Ot 959.3 ELB/FOREARM/ WRST INJ NOS 06/12/2016 Ot E000.8 OTHER EXTERNAL CAUSE STATUS 06/12/2016 Ot E030 UNSPECIFIED ACTIVITY 06/12/2016 Ot E849.0 ACCIDENT IN HOME 06/12/2016 MYESHA ULRICH MD Ot M47.896 OTHER SPONDYLOSIS, LUMBAR REGION 06/12/2016 LEONARD WILSON ANIME DESIGNER Ot N93.8 OTHER SPECIFIED ABNORMAL UTERINE AND VAG 06/12/2016 QUICKLEONARD ANIME DESIGNER Ot N94.6 DYSMENORRHEA, UNSPECIFIED 07/04/2016 UGARTE DO, XU C Ot O20.0 THREATENED 01/15/2017 TORITO DONEDA C Ot J45.909 UNSPECIFIED ASTHMA, UNCOMPLICATED 01/15/2017 TORITO DONEDA C Ot K21.9 GASTRO-ESOPHAGEAL REFLUX DISEASE WITHOUT 01/15/2017 TORITO DONEDA C Ot O02.1 MISSED 01/15/2017 TORITO DONEDA C Ot Z79.899 OTHER DETENTION (CURRENT) DRUG THERAPY 01/15/2017 TORITO DONEDA C Ot Z87.891 PERSONAL HISTORY OF NICOTINE DEPENDENCE 01/16/2017 TORITO DONEDA C Ot J45.909 UNSPECIFIED ASTHMA, UNCOMPLICATED 01/16/2017 TORITO DONEDA C Ot K21.9 GASTRO-ESOPHAGEAL REFLUX DISEASE WITHOUT 01/16/2017 UGARTE DO XU C Ot O02.1 MISSED 01/16/2017 TORITO DONEDA C Ot Z79.899 OTHER DETENTION (CURRENT) DRUG THERAPY 01/16/2017 TORITO DO XU C Ot Z87.891 PERSONAL HISTORY OF NICOTINE DEPENDENCE 01/17/2017 TORITO DONEDA C Ot J45.909 UNSPECIFIED ASTHMA, UNCOMPLICATED 01/17/2017 TORITO DONEDA C Ot K21.9 GASTRO-ESOPHAGEAL REFLUX DISEASE WITHOUT 01/17/2017 TORITO DONEDA C Ot O02.1 MISSED 01/17/2017 TORITO DONEDA C Ot Z79.899 OTHER DETENTION (CURRENT) DRUG THERAPY 01/17/2017 TORITO DONEDA C Ot Z87.891 PERSONAL HISTORY OF NICOTINE DEPENDENCE 01/28/2017 TORITO WARD XU C Ot J45.909 UNSPECIFIED ASTHMA, UNCOMPLICATED 01/28/2017 TORITO DONEDA C Ot K21.9 GASTRO-ESOPHAGEAL REFLUX DISEASE WITHOUT 01/28/2017 UGARTE DO XU C Ot O02.1 MISSED 01/28/2017 TORITO DONEDA C Ot Z79.899 OTHER DETENTION (CURRENT) DRUG THERAPY 01/28/2017 UGARTE DO XU C Ot Z87.891 PERSONAL HISTORY OF NICOTINE DEPENDENCE 07/04/2017 LEONARD WILSON ANIME DESIGNER Ot N63.20 UNSPECIFIED LUMP IN THE LEFT BREAST, UNS 07/15/2017 LEONARD WILSON ANIME DESIGNER Ot N63.20 UNSPECIFIED LUMP IN THE LEFT BREAST, UNS 07/29/2017 LEONARD WILSON ANIME DESIGNER Ot N63.20 UNSPECIFIED LUMP IN THE LEFT BREAST, UNS 01/23/2018 XU UGARTE DO Shauna Ot N97.0 FEMALE INFERTILITY ASSOCIATED WITH ANOVU 03/11/2018 UGARTE DO XU C Ot N92.6 IRREGULAR MENSTRUATION, UNSPECIFIED 03/11/2018 UGARTE DO XU C Ot N96 RECURRENT LOSS 03/26/2018 UGARTE DO XU C Ot N92.6 IRREGULAR MENSTRUATION, UNSPECIFIED 03/26/2018 UGARTE DO XU C Ot N96 RECURRENT LOSS 04/28/2018 UGARTE DO XU C Ot N96 RECURRENT LOSS 05/02/2018 UGARTE DO XU C Ot N96 RECURRENT LOSS 05/14/2018 UGARTE DO XU C Ot N96 RECURRENT LOSS Procedures Code [place] [address] PSYCH DIAGNOSTIC EVALUATION 03/07/2012 90322 PSYTX PT&/FAMILY 30 MINUTES 06/19/2012 12226 PSYTX PT&/FAMILY 45 MINUTES 07/11/2012 53502 PSYTX PT&/FAM W/E&M 30 MIN 08/15/2012 17992 PSYTX PT&/FAMILY 30 MINUTES 11/12/2012 89565 PSYCH DIAGNOSTIC EVALUATION 11/06/2013 47233 PSYTX PT&/FAMILY 45 MINUTES 12/28/2013 29424 PSYCH DIAGNOSTIC EVALUATION 12/28/2013 87624 PSYCH DIAGNOSTIC EVALUATION 12/30/2013 67066 PSYTX PT&/FAMILY 45 MINUTES 12/30/2013 94472 PSYTX PT&/FAMILY 45 MINUTES 01/07/2014 72244 PSYTX PT&/FAMILY 45 MINUTES 02/24/2014 00262 PSYCH DIAGNOSTIC EVALUATION 02/26/2014 32367 PSYCH DIAGNOSTIC EVALUATION 03/01/2014 12180 PSYTX PT&/FAMILY 45 MINUTES 03/03/2014 14850 PSYTX PT&/FAMILY 45 MINUTES 03/10/2014 08112 PSYCH DIAG EVAL W/MED SRVCS 04/11/2014 62906 PSYTX PT&/FAMILY 45 MINUTES 04/12/2014 18868 PSYTX PT&/FAMILY 45 MINUTES 05/17/2014 24139 PSYTX PT&/FAMILY 45 MINUTES 06/15/2014 Results Test Result Range Serum or plasma choriogonadotropin measurement (units/volume) - 06/12/16 19:25 Serum or plasma choriogonadotropin measurement (units/volume) 8 m[iU ]/mL <5 Methicillin resistant Staphylococcus aureus (MRSA) screening culture - 13:35 Methicillin resistant Staphylococcus aureus (MRSA) screening culture NEG NRG Serum or plasma progesterone measurement (mass/volume) - 01/15/18 18:07 Serum or plasma progesterone measurement (mass/volume) 11.76 % NRG Serum or plasma progesterone measurement (mass/volume) - 03/09/18 12:54 Serum or plasma progesterone measurement (mass/volume) 12.92 % NRG Serum or plasma estradiol (E2) measurement (mass/volume) - 04/26/18 15:18 Serum or plasma estradiol (E2) measurement (mass/volume) 106 pg/mL NRG Serum or plasma estradiol (E2) measurement (mass/volume) - 05/23/18 04:00 Serum or plasma estradiol (E2) measurement (mass/volume) 53 pg/mL NRG Encounters ACCT No. Visit Date/Time Discharge Status Pt. Type Provider Facility Loc./Unit Complaint [id number] 06/15/2014 08:50:00 06/15/2014 23:59:59 [facility] VANESSA GANDARA PHD [id number] 05/17/2014 09:02:00 05/17/2014 23:59:59 [facility] VANESSA GANDARA PHD [id number] 04/09/2014 08:56:00 04/09/2014 23:59:59 [facility] VANESSA GANDARA PHD [id number] 03/10/2014 09:54:00 03/10/2014 23:59:59 [facility] VANESSA GANDARA PHD [id number] 03/03/2014 14:00:00 03/03/2014 23:59:59 [facility] Outpatient VANESSA GANDARA PHD [id number] 02/26/2014 10:07:00 02/26/2014 23:59:59 [facility] Outpatient NELSON JOHNSON [id number] 02/24/2014 09:57:00 02/24/2014 23:59:59 [facility] Outpatient VANESSA GANDARA PHD [id number] 01/07/2014 11:01:00 01/07/2014 23:59:59 [facility] Outpatient VANESSA GANDARA PHD [id number] 12/30/2013 08:59:00 12/30/2013 23:59:59 [facility] Outpatient VANESSA GANDARA PHD [id number] 12/28/2013 11:03:00 12/28/2013 23:59:59 [facility] Outpatient NELSON JOHNSON [id number] 12/28/2013 11:03:00 12/28/2013 23:59:59 [facility] Outpatient NELSON JOHNSON [id number] 11/06/2013 15:51:00 11/06/2013 23:59:59 [facility] Outpatient VANESSA GANDARA PHD [id number] 11/13/2012 16:34:00 11/13/2012 23:59:59 CLS Outpatient REJI MILNER DO [id number] 03/14/2012 13:58:00 03/14/2012 23:59:59 CLS Outpatient REJI MILNER DO [id number] 03/06/2012 10:03:00 03/06/2012 23:59:59 C[facility] Outpatient [id number] 12/13/2011 10:56:00 12/13/2011 23:59:59 C[facility] Outpatient [id number] 12/13/2011 10:56:00 12/13/2011 23:59:59 CLS Outpatient REJI MILNER DO [id number] 11/07/2012 16:10:00 Document Registration [id number] 09/30/2012 17:07:00 Document Registration [id number] 07/09/2012 09:11:00 Document Registration [id number] 06/19/2012 14:36:00 Document Registration [id number] 05/23/2018 03:47:00 05/23/2018 23:59:59 C[facility] Outpatient XU UGARTE DO [facility] LAB RECURRENT LOSS [id number] 04/26/2018 15:08:00 04/26/2018 23:59:59 CLS Outpatient XU UGARTE DO [facility] LAB N96 [id number] 03/09/2018 12:39:00 03/09/2018 23:59:59 CLS Outpatient XU UGARTE DO [facility] LAB N92.6,N96 [id number] 01/15/2018 18:07:00 01/15/2018 23:59:59 CLS Outpatient XU UGARTE DO [facility] LABNPT [id number] 07/15/2017 13:46:00 07/15/2017 23:59:59 CLS Preadmit LEONARD WILSON [facility] RAD LEFT BREAST LUMP [id number] 07/03/2017 13:06:00 07/03/2017 23:59:59 CLS Outpatient LEONARD WILSON [facility] RAD [id number] 01/15/2017 13:12:00 01/15/2017 18:05:00 DIS Outpatient XU UGARTE DO [facility] SDC MISSED [id number] 06/12/2016 19:11:00 06/12/2016 23:59:59 CLS Outpatient XU UGARTE DO [facility] LAB MISCARRIAGE,THREATENED, EARLY [id number] 10/07/2015 09:41:00 10/07/2015 23:59:59 CLS Outpatient LEONARD WILSON [facility] RAD DYSMENORRHEA,DUB [id number] 06/23/2015 14:36:00 06/23/2015 23:59:59 CLS Outpatient MOJGAN MALDONADO, MYESHA Peraza [facility] RAD REFRACTURY TO PT LOWER LUMBAR PAIN, PRE MRI [id number] 08/04/2013 09:42:00 08/04/2013 23:59:59 CLS Outpatient [id number] 06/10/2018 04:03:00 ACT Emergency ELLA MALDONADO, AVILA Sargent [facility] ER THROBBING ABD PAIN IN BACK OVARIES,NAUSEA DIARRH [id number] 09/05/2011 14:58:00 Document Registration [id number] 08/02/2010 17:05:00 Document Registration
[2018-06-10 04:30] LABS: BILIRUBIN,URINE NEGATIVE (NEGATIVE); CLARITY,URINE CLEAR; COLOR,URINE YELLOW; GLUCOSE, URINE (UA) NEGATIVE (NEGATIVE); KETONES,URINE 2+ (NEGATIVE); LEUKOCYTE ESTERASE ,URINE NEGATIVE (NEGATIVE); NITRITE,URINE NEGATIVE (NEGATIVE); PH,URINE 6.5 (5-9); PROTEIN,URINE NEGATIVE (NEGATIVE); UROBILINOGEN,URINE NORMAL (NORMAL)
[2018-06-10 04:30] LABS: BASOPHILS % (AUTO) 0 % (0-10); EOSINOPHILS # (AUTO) 0.1 10^3/uL (0.0-0.3); EOSINOPHILS % (AUTO) 1 % (0-10); HEMATOCRIT 41 % (35-52); HEMOGLOBIN 14.4 G/DL (11.5-16.0); LYMPHOCYTES # (AUTO) 0.7 X 10^3 (1.0-4.0); LYMPHOCYTES % (AUTO) 16 % (12-44); MEAN CORPUSCULAR HEMOGLOBIN 31 PG (25-34); MEAN CORPUSCULAR HGB CONC 35 G/DL (32-36); MEAN CORPUSCULAR VOLUME 90 FL (80-99); MEAN PLATELET VOLUME 9.5 FL (7.4-10.4); MONOCYTES # (AUTO) 0.4 X 10^3 (0.0-1.0); MONOCYTES % (AUTO) 10 % (0-12); NEUTROPHILS # (AUTO) 3.2 X 10^3 (1.8-7.8); NEUTROPHILS % (AUTO) 73 % (42-75); PLATELET COUNT 219 10^3/uL (130-400); RED CELL DISTRIBUTION WIDTH 12.3 % (10.0-14.5); WHITE BLOOD COUNT 4.3 10^3/uL (4.3-11.0)
[2018-06-10 04:41] LABS: BACTERIA,URINE FEW /HPF; RBC,URINE 0-2 /HPF; WBC,URINE RARE /HPF
[2018-06-10 04:45] LABS: ALANINE AMINOTRANSFERASE 20 U/L (0-55); ALBUMIN 4.2 GM/DL (3.2-4.5); ALKALINE PHOSPHATASE 60 U/L (40-136); BILIRUBIN,TOTAL 0.4 MG/DL (0.1-1.0); BUN/CREATININE RATIO 18; CARBON DIOXIDE 22 MMOL/L (21-32); CHLORIDE 107 MMOL/L (98-107); CREATININE SERUM 0.71 MG/DL (0.60-1.30); GFR ESTIMATED > 60; GLUCOSE 111 MG/DL (70-105); LIPASE 27 U/L (8-78); POTASSIUM 3.3 MMOL/L (3.6-5.0); SODIUM 139 MMOL/L (135-145)
[2018-06-10] MEDS ORDERED: LACTATED RINGERS 1,000 ML IV ONE (04:47)
[2018-06-10] MEDS ORDERED: ANTACID SUSP 30 ML UDC (MYLANTA) PO ONE (05:00)
[2018-06-10] MEDS ORDERED: LIDOCAINE 2% VISCOUS 15 ML UDC PO ONE (05:00)
[2018-06-10] MEDS ORDERED: ONDANSETRON 4 MG/2 ML (SDV) Z0FRAN IVP ONE (05:00)
--- NOTE | 2018-06-10 05:21 | ED Abdominal Pain ---
General Chief Complaint: Abdominal/GI Problems Stated Complaint: THROBBING ABD PAIN IN BACK & OVARIES,NAUSEA DIARRH Nursing Triage Note: PT STATES SHE BEGAN TO EXPERIENCE LOWER ABDOMINAL PAIN AND NAUSEA WITH LOOSE STOOL THAT ONSET SATURDAY EVENING, PT REPORTS LOOSE STOOLS LASTED THROUGHOUT SATURDAY AFTERNOON, STATES LAST BM WAS REGULAR. Sepsis Screen: Possible Sepsis Risk Source of Information: Patient Exam Limitations: No Limitations History of Present Illness Date Seen by Provider: Jun 10, 2018 Time Seen by Provider: 04:09 Initial Comments This 43-year-old woman presents to the emergency room with complaints of a generalized central abdominal pain, nausea, diarrhea, headache, and heartburn for about the past 4 days. She is presently taking letrozole for fertility. That dose was increased on Saturday with the first dose being taken shortly after symptoms started. Symptoms have largely improved but she still has the central abdominal pain. She is afebrile. She is also taking some pstw-oho-iygajin antiacid medications. Allergies and Home Medications Allergies Coded Allergies: No Known Drug Allergies (Verified , 11/23/13) Home Medications Ibuprofen 600 Mg Tablet, 600 MG PO Q6HR Prescribed by: XU UGARTE on 01/15/17 1632 Patient Home Medication List Home Medication List Reviewed: Yes Review of Systems Review of Systems Constitutional: no symptoms reported EENTM: No Symptoms Reported Respiratory: No Symptoms Reported Cardiovascular: No Symptoms Reported Gastrointestinal: See HPI Genitourinary: No Symptoms Reported Musculoskeletal: no symptoms reported Skin: no symptoms reported Psychiatric/Neurological: No Symptoms Reported Endocrine: See HPI Hematologic/Lymphatic: No Symptoms Reported Past Tmrckjz-Dtdojj-Wnhmfc Hx Past Med/Social Hx: Reviewed and Corrections made Patient Social History Alcohol Use: Rarely Uses Number of Drinks Today: AA Alcohol Beverage of Choice: Beer Recreational Drug Use: No Smoking Status: Former Smoker Former Smoker, Quit: Jan 16, 2016 Recent Foreign Travel: No Contact w/Someone Who Travel: No Recent Infectious Disease Expo: No Recent Hopitalizations: No Immunizations Up To Date Tetanus Booster (TDap): Unknown PED Vaccines UTD: No Date of Influenza Vaccine: Dec 19, 2016 Seasonal Allergies Seasonal Allergies: Yes Past Medical History Surgeries: Yes Joint Replacement, Orthopedic Respiratory: Yes (STATES "ASTHMA RESOLVED AFTER QUITTING SMOKING") Asthma Currently Using CPAP: No Currently Using BIPAP: No Cardiac: No Neurological: No : No Last Menstrual Period: Jun 04, 2018 Reproductive Disorders: Yes (fertility problems) Sexually Transmitted Disease: No Gastrointestinal: No Musculoskeletal: No Endocrine: No HEENT: No Cancer: No Psychosocial: No Integumentary: No Blood Disorders: No Physical Exam Vital Signs Vital Signs - First Documented 06/10/18 04:08 Temp 99.4 Pulse 97 Resp 18 B/P (MAP) 123/88 (100) Pulse Ox 96 O2 Delivery Room Air Capillary Refill : Less Than 3 Seconds Height/Weight/BMI Height: 5'7.00" Weight: 173lbs. 0.0oz. 78.571184hn; 27.1 BMI Method:Stated General Appearance: WD/WN, no apparent distress HEENT: PERRL/EOMI, normal ENT inspection Respiratory: lungs clear, normal breath sounds, no respiratory distress, no accessory muscle use Cardiovascular: regular rate, rhythm, no edema, no murmur Gastrointestinal: normal bowel sounds, soft, tenderness (mild generalized tenderness in the central abdomen) Extremities: normal inspection, no pedal edema Neurologic/Psychiatric: certified novell engineer II-XII nml as tested, no motor/sensory deficits, alert, normal mood/affect, oriented x 3 Skin: normal color, warm/dry Progress/Results/Core Measures Results/Orders Lab Results Laboratory Tests Test 06/10/18 04:10 06/10/18 04:15 Range/Units Urine Color YELLOW Urine Clarity CLEAR Urine pH 6.5 5-9 Urine Specific [place] 1.010 L 1.016-1.022 Urine Protein NEGATIVE NEGATIVE Urine Glucose (UA) NEGATIVE NEGATIVE Urine Ketones 2+ H NEGATIVE Urine Nitrite NEGATIVE NEGATIVE Urine Bilirubin NEGATIVE NEGATIVE Urine Urobilinogen NORMAL NORMAL MG/DL Urine Leukocyte Esterase NEGATIVE NEGATIVE Urine RBC (Auto) 1+ H NEGATIVE Urine RBC 0-2 /HPF Urine WBC RARE /HPF Urine Squamous Epithelial Cells 2-5 /HPF Urine Crystals NONE /LPF Urine Bacteria FEW H /HPF Urine Casts NONE /LPF Urine Mucus NEGATIVE /LPF Urine Culture Indicated NO White Blood Count 4.3 4.3-11.0 10^3/uL Red Blood Count 4.58 4.35-5.85 10^6/uL Hemoglobin 14.4 11.5-16.0 G/DL Hematocrit 41 35-52 % Mean Corpuscular Volume 90 80-99 FL Mean Corpuscular Hemoglobin 31 25-34 PG Mean Corpuscular Hemoglobin Concent 35 32-36 G/DL Red Cell Distribution Width 12.3 10.0-14.5 % Platelet Count 219 130-400 10^3/uL Mean Platelet Volume 9.5 7.4-10.4 FL Neutrophils (%) (Auto) 73 42-75 % Lymphocytes (%) (Auto) 16 12-44 % Monocytes (%) (Auto) 10 0-12 % Eosinophils (%) (Auto) 1 0-10 % Basophils (%) (Auto) 0 0-10 % Neutrophils # (Auto) 3.2 1.8-7.8 X 10^3 Lymphocytes # (Auto) 0.7 L 1.0-4.0 X 10^3 Monocytes # (Auto) 0.4 0.0-1.0 X 10^3 Eosinophils # (Auto) 0.1 0.0-0.3 10^3/uL Basophils # (Auto) 0.0 0.0-0.1 10^3/uL Sodium Level 139 135-145 MMOL/L Potassium Level 3.3 L 3.6-5.0 MMOL/L Chloride Level 107 98-107 MMOL/L Carbon Dioxide Level 22 21-32 MMOL/L Anion Gap 10 5-14 MMOL/L Blood Urea Nitrogen 13 7-18 MG/DL Creatinine 0.71 0.60-1.30 MG/DL Estimat Glomerular Filtration Rate > 60 BUN/Creatinine Ratio 18 Glucose Level 111 H 70-105 MG/DL Calcium Level 9.0 8.5-10.1 MG/DL Corrected Calcium 8.8 8.5-10.1 MG/DL Magnesium Level 2.0 1.8-2.4 MG/DL Total Bilirubin 0.4 0.1-1.0 MG/DL Aspartate Amino Transf (AST/SGOT) 15 5-34 U/L Alanine Aminotransferase (ALT/SGPT) 20 0-55 U/L Alkaline Phosphatase 60 40-136 U/L Total Protein 7.0 6.4-8.2 GM/DL Albumin 4.2 3.2-4.5 GM/DL Lipase 27 8-78 U/L Serum Test, Qualitative NEGATIVE NEGATIVE My Orders Orders - AVILA JARAMILLO MD Cbc With Automated Diff (06/10/18 04:23) Comprehensive Metabolic Panel (06/10/18 04:23) Hcg,Qualitative Serum (06/10/18 04:23) Lipase (06/10/18 04:23) Magnesium (06/10/18 04:23) Ua Culture If Indicated (06/10/18 04:23) Ed Iv/Invasive Line Start (06/10/18 04:47) Lactated Ringers (Lr 1000 Ml Iv Solution (06/10/18 04:47) Lidocaine 2% Viscous 15 Ml (Xylocaine Vi (06/10/18 05:00) Antacid Suspension (Mylanta Suspension (06/10/18 05:00) Ondansetron Injection (Zofran Injectio (06/10/18 05:00) Rx-Ondansetron Po (Rx-Zofran Po) (06/10/18 05:36) Medications Given in ED Current Medications Medications Dose Ordered Sig/Alo Route Start Time Stop Time Status Last Admin Dose Admin Al Hydrox/Mg Hydrox/Simethicone 30 ml ONCE ONCE PO 06/10/18 05:00 06/10/18 05:01 DC 06/10/18 05:05 30 ML Lactated Ringer's 1,000 ml @ 0 mls/hr Q0M ONCE IV 06/10/18 04:47 06/10/18 04:50 DC 06/10/18 05:07 1,000 MLS/HR Lidocaine HCl 15 ml ONCE ONCE PO 06/10/18 05:00 06/10/18 05:01 DC 06/10/18 05:05 15 ML Ondansetron HCl 4 mg ONCE ONCE IVP 06/10/18 05:00 06/10/18 05:01 DC 06/10/18 05:07 4 MG Vital Signs/I&O 06/10/18 04:08 Temp 99.4 Pulse 97 Resp 18 B/P (MAP) 123/88 (100) Pulse Ox 96 O2 Delivery Room Air Blood Pressure Mean: 100 Progress Progress Note #1: Time: 05:19 Progress Note Workup was grossly unremarkable. She had mild hypokalemia and some ketones in her urine. She will be hydrated with 1 L of LR for fluid and potassium replacement. A GI cocktail and Zofran are also being given. Progress Note #2: Time: 05:40 Progress Note Patient was feeling better after Zofran and a GI cocktail. She was hydrated with 1 L of LR which induced urination. She was thought to be well hydrated at this point. She was advised to continue antiacid therapy and a take-home pack of Zofran was dispensed. Departure Impression Primary Impression: Generalized abdominal pain Additional Impressions: Nausea Diarrhea Qualified Codes: R19.7 - Diarrhea, unspecified Disposition: 01 HOME, SELF-CARE Condition: Improved Departure-Patient Inst. Decision time for Depature: 05:38 Referrals: MYESHA ULRICH MD (PCP/Family) Primary Care Physician Patient Instructions: Acute Abdomen (Belly Pain), Adult (DC) Add. Discharge Instructions: Start with clear liquids and gradually advance your diet with small quantities of bland food as tolerated. Drink plenty of clear liquids. Avoid milk products for another day or two. You may dissolve Zofran (ondansetron) under the tongue every 4 hours as needed for nausea. You may continue using an qxzr-lyw-kovlgxb antacid medication such as omeprazole or Pepcid (famotidine) for the next several days until symptoms have been resolved for at least a few days. Return to care if you have worsening symptoms. All discharge instructions reviewed with patient and/or family. Voiced understanding. AVILA JARAMILLO MD Jun 10, 2018 05:21
[2018-06-10] MEDS ORDERED: RX-ONDANSETRON 4 MG ODT (ZOFRAN) PPK #4 SL STA (05:36)
[2018-06-10 05:52] VITALS: BP 115/78
== END 2018-06-10 05:52 | disposition home or self-care (01) ==
LOC: EDUNIT# 04:00 → ER 04:03
DX: R10.84 Generalized abdominal pain (principal); R11.0 Nausea; R19.7 Diarrhea, unspecified; J45.909 Unspecified asthma, uncomplicated; Z87.891 Personal history of nicotine dependence
CPT/HCPCS: 36415; 80053; 81000; 83690; 83735; 84703; 85025

== ENCOUNTER → 2020-04-11 | Outpatient (CLI) | payer BC, OTHER ==
[~2020-04-11] MED LIST changes: +IOHEXOL 300 MG/ML 50 ML (OMNIPAQUE 300) VIAL IV ONE
--- NOTE | 2020-04-11 14:16 | Diagnostic Imaging Report ---
Hysterosalpingogram. Indication: Infertility There are no prior studies available for comparison. The preliminary film is unremarkable. Following aseptic preparation of the cervix a small catheter was introduced into the cervical os by Dr. Kendy Harry. Cystoscopy contrast was infused through the catheter. The endometrial cavity is unremarkable. There was opacification of the left fallopian tube and there was spill from the left fallopian tube. The right fallopian tube was only partially opacified and difficult to assess. There is no clear evidence for spill from the right fallopian tube. The patient tolerated the procedure well. Impression: 1. The left fallopian tube is patent. The right fallopian tube was not well visualized and there is no clear evidence for spill from the right fallopian tube. 2. The endometrial canal is unremarkable. Dictated by: Dictated on workstation # [id number]
== END ==
LOC: RAD 12:30
PROVIDERS: ATTEND Obstetrics & Gynecology
DX: N97.9 Female infertility, unspecified (principal)
CPT/HCPCS: 58340; 74740

== ENCOUNTER → 2020-04-14 | Outpatient (CLI) | payer BC, OTHER ==
[~2020-04-14] MED LIST changes: -IOHEXOL 300 MG/ML 50 ML (OMNIPAQUE 300) VIAL IV ONE
--- NOTE | 2020-04-15 09:44 | Diagnostic Imaging Report ---
INDICATION: Routine screening. COMPARISON is made with prior mammogram from 07/03/2017. 2-D and 3-D bilateral screening mammography was performed with CAD. Both breasts are heterogeneously dense, limiting the sensitivity of mammography. Intraparenchymal lymph node in the upper outer right breast appears stable. No spiculated mass or malignant-appearing microcalcifications are seen. Axillae are unremarkable. IMPRESSION: BI-RADS Category 2 No mammographic features suspicious for malignancy are identified. ACR BI-RADS Category 2: Benign findings. Result letter will be mailed to the patient. Note: At least 10% of breast cancer is not imaged by mammography. Dictated by: Dictated on workstation # [id number]
== END ==
LOC: RAD 14:45
PROVIDERS: ATTEND Obstetrics & Gynecology
DX: Z12.31 Encounter for screening mammogram for malignant neoplasm of breast (principal); N96 Recurrent pregnancy loss
CPT/HCPCS: 36415; 77063; 77067; 85610; 85705; 85730

== ENCOUNTER → 2020-05-03 | Outpatient (CLI) | payer BC ==
--- NOTE | 2020-05-03 10:24 | Diagnostic Imaging Report ---
CLINICAL INDICATION: Patient with left lower extremity edema and pain. COMPARISON: None PROCEDURE: Real-time left lower extremity venous Doppler duplex evaluation is performed from the inguinal region through the popliteal fossa. The calf venous structures are also evaluated. FINDINGS: The deep venous system is well visualized and is easily compressible. There is no evidence of deep venous thrombosis, valvular incompetence, or significant collateral circulation. IMPRESSION: There is no ultrasound Doppler evidence of deep venous thrombosis in the left lower extremity. Dictated by: Dictated on workstation # [id number]
== END ==
LOC: RAD 09:38
PROVIDERS: ATTEND Nurse Practitioner Family
DX: R60.0 Localized edema (principal); M79.662 Pain in left lower leg

== ENCOUNTER → 2020-06-07 | Outpatient (CLI) | payer BC ==
[~2020-06-07] MED LIST changes: +GADOBUTROL 7.5 MMOL/7.5 ML (GADAVIST) VIAL IV ONE
--- NOTE | 2020-06-07 11:39 | Diagnostic Imaging Report ---
PROCEDURE: MR imaging of the brain with and without contrast. TECHNIQUE: Multiplanar, multisequence MR imaging of the brain was performed with and without contrast. INDICATION: Right arm weakness. Evaluate for multiple sclerosis. COMPARISON: None. FINDINGS: No acute ischemia, mass, or hemorrhage. No focal signal abnormalities are visualized. No abnormal enhancement. The ventricles, cortical sulci, and basilar cisterns are symmetric and unremarkable. The sellar and suprasellar regions have a normal appearance. The major intracranial flow voids have a normal appearance. The brainstem and posterior fossa are unremarkable. The paranasal sinuses and mastoid air cells demonstrate normal signal characteristics. The globes and orbits are symmetric and unremarkable. The scalp and calvarium have a normal appearance. IMPRESSION: 1. No acute ischemia, mass, or hemorrhage. No abnormal enhancement. 2. No focal T2 signal abnormalities are visualized to suggest multiple sclerosis. Dictated by: Dictated on workstation # [id number]
--- NOTE | 2020-06-07 11:56 | Diagnostic Imaging Report ---
PROCEDURE: MR imaging cervical spine with and without contrast. TECHNIQUE: Multiplanar and multisequence MRI of the cervical spine was performed with and without contrast. INDICATION: Right arm weakness. Evaluate for multiple sclerosis. COMPARISON: None. FINDINGS: The spine is visualized to the T3 level. No acute fracture or dislocation is seen in the cervical spine. Alignment is anatomic. No focal osseous lesions are seen. The craniocervical junction is intact. The intrinsic signal within the cervical spinal cord is normal. No evidence of abnormal enhancement or focal T2 hyperintense signal. No epidural collections. Mild degenerative changes are present in the cervical spine with uncovertebral arthropathy and posterior disc bulges. These are greatest at the C6-C7 level with no significant spinal canal narrowing and [id number] left foraminal narrowing. No high-grade spinal canal or foraminal stenosis is seen in the cervical spine. The soft tissues of the neck are unremarkable without acute abnormality. IMPRESSION: 1. No acute fracture or dislocation in the cervical spine. 2. No evidence of multiple sclerosis in the cervical spine. No focal signal abnormalities or abnormal enhancement. 3. [id number]-[id number] left foraminal narrowing at the C6-C7 level. No other areas of significant spinal canal or foraminal stenosis are seen. Dictated by: Dictated on workstation # [id number]
== END ==
LOC: RAD 08:45
PROVIDERS: ATTEND Internal Medicine
DX: M48.02 Spinal stenosis, cervical region (principal)
CPT/HCPCS: 70553; 72156

== ENCOUNTER → 2021-01-10 | Outpatient (RCR) | payer BC ==
[~2021-01-10] MED LIST changes: -GADOBUTROL 7.5 MMOL/7.5 ML (GADAVIST) VIAL IV ONE
== END | disposition home or self-care (01) ==
PROVIDERS: ATTEND Physical Therapist
DX: M54.9 Dorsalgia, unspecified (principal); J45.909 Unspecified asthma, uncomplicated

== ENCOUNTER 2021-02-14 14:14 | Outpatient (RCR) | payer BC | END 2021-02-24 | disposition home or self-care (01) | PROVIDERS: ATTEND Physical Therapist | DX: M54.50 Low back pain, unspecified (principal); M79.89 Other specified soft tissue disorders; R53.1 Weakness ==

== ENCOUNTER 2021-03-21 13:45 | Outpatient (RCR) | payer BC | END 2021-03-27 | disposition home or self-care (01) | PROVIDERS: ATTEND Physical Therapist | DX: M54.50 Low back pain, unspecified (principal); M79.89 Other specified soft tissue disorders; R53.1 Weakness ==

== ENCOUNTER 2021-04-18 13:43 | Outpatient (RCR) | payer BC | END 2021-04-24 | disposition home or self-care (01) | PROVIDERS: ATTEND Physical Therapist | DX: M54.50 Low back pain, unspecified (principal); M79.89 Other specified soft tissue disorders; R53.1 Weakness ==

== ENCOUNTER 2021-05-23 13:05 | Outpatient (RCR) | payer BC | END 2021-05-25 | disposition home or self-care (01) | PROVIDERS: ATTEND Physical Therapist | DX: M54.50 Low back pain, unspecified (principal); M79.89 Other specified soft tissue disorders; R53.1 Weakness ==

== ENCOUNTER 2021-06-21 13:04 | Outpatient (RCR) | payer BC | END 2021-06-24 | disposition home or self-care (01) | PROVIDERS: ATTEND Physical Therapist | DX: M54.50 Low back pain, unspecified (principal); M79.89 Other specified soft tissue disorders; R53.1 Weakness ==

== ENCOUNTER 2021-07-19 10:44 | Outpatient (RCR) | payer BC | END 2021-07-25 | disposition home or self-care (01) | PROVIDERS: ATTEND Physical Therapist | DX: M54.50 Low back pain, unspecified (principal); M79.89 Other specified soft tissue disorders; R53.1 Weakness ==

== ENCOUNTER 2021-08-15 09:45 | Outpatient (RCR) | payer BC | END 2021-08-24 | disposition home or self-care (01) | PROVIDERS: ATTEND Physical Therapist | DX: M54.50 Low back pain, unspecified (principal); M79.89 Other specified soft tissue disorders; R53.1 Weakness ==

== ENCOUNTER 2021-08-29 09:04 | Outpatient (RCR) | payer BC | END 2021-09-24 | disposition home or self-care (01) | PROVIDERS: ATTEND Physical Therapist | DX: M54.50 Low back pain, unspecified (principal); M79.89 Other specified soft tissue disorders; R53.1 Weakness ==

== ENCOUNTER 2022-02-15 08:49 | Outpatient (RCR) | payer BC | END 2022-02-24 | disposition home or self-care (01) | PROVIDERS: ATTEND Nurse Practitioner Family | DX: M54.16 Radiculopathy, lumbar region (principal); M62.81 Muscle weakness (generalized) ==

== ENCOUNTER 2022-03-23 10:33 | Outpatient (RCR) | payer BC | END 2022-03-27 | disposition home or self-care (01) | PROVIDERS: ATTEND Nurse Practitioner Family | DX: M54.16 Radiculopathy, lumbar region (principal); J45.909 Unspecified asthma, uncomplicated ==

== ENCOUNTER 2022-07-19 12:42 | Outpatient (RCR) | payer BC | END 2022-07-25 | disposition home or self-care (01) | PROVIDERS: ATTEND Physician Assistant | DX: M54.16 Radiculopathy, lumbar region (principal); Z98.890 Other specified postprocedural states ==

== ENCOUNTER → 2022-08-24 | Outpatient (RCR) | payer BC | END | disposition home or self-care (01) | PROVIDERS: ATTEND Physician Assistant | DX: M54.16 Radiculopathy, lumbar region (principal); Z98.890 Other specified postprocedural states ==

== ENCOUNTER → 2022-09-24 | Outpatient (RCR) | payer BC | END | disposition home or self-care (01) | PROVIDERS: ATTEND Physician Assistant | DX: M54.16 Radiculopathy, lumbar region (principal); Z98.890 Other specified postprocedural states ==

== ENCOUNTER 2022-10-12 13:02 | Outpatient (RCR) | payer BC | END 2022-10-25 | disposition home or self-care (01) | PROVIDERS: ATTEND Physician Assistant | DX: M54.16 Radiculopathy, lumbar region (principal); Z98.890 Other specified postprocedural states ==

== ENCOUNTER 2022-12-21 12:59 | Outpatient (RCR) | payer BC | END 2022-12-25 | disposition home or self-care (01) | PROVIDERS: ATTEND Physician Assistant | DX: M54.16 Radiculopathy, lumbar region (principal); Z98.890 Other specified postprocedural states ==

== ENCOUNTER 2023-01-11 13:46 | Outpatient (RCR) | payer BC | END 2023-01-24 | disposition home or self-care (01) | PROVIDERS: ATTEND Physician Assistant | DX: M54.16 Radiculopathy, lumbar region (principal); Z98.890 Other specified postprocedural states ==